=== PATIENT | male | born 1980 | race Asian ===

== ENCOUNTER 2016-12-15 17:19 | Emergency (ER) | payer SELFPAY ==
--- NOTE | 2016-12-15 18:52 | ER Document Report ---
ED Medical Screen (RME) - General Stated Complaint: HAND INJURY Notes: 36 yo male c/o right hand pain. punched a wall. + pain and swelling over 4th and 5th metacarpals no deformity - Related Data Allergies/Adverse Reactions: No Known Allergies Allergy (Verified 12/15/16 18:50) Physical Exam - Vital signs Vitals: Temp Pulse Resp BP Pulse Ox 99.2 F 75 16 128/90 H 100 12/15/16 17:41 12/15/16 17:41 12/15/16 17:41 12/15/16 17:41 12/15/16 17:41 Course - Vital Signs Vital signs: Temp Pulse Resp BP Pulse Ox 99.2 F 75 16 128/90 H 100 12/15/16 17:41 12/15/16 17:41 12/15/16 17:41 12/15/16 17:41 12/15/16 17:41
--- NOTE | 2016-12-15 20:02 | ER Document Report ---
ED Hand/Wrist Injury - General Chief Complaint: Hand Injury Stated Complaint: HAND INJURY Notes: Patient is a 36-year-old male presents emergency department after he punched a wall today. He isn't states that he was jittery with this friend inserting his friend he punched a wall. Patient admits to pain over the fourth and fifth metacarpals with pain with movement of the hand. Patient states he is able to move his fingers but has pain along the 2 areas. Patient admits to some pain in his wrist as well but easily able to move his wrist. Sensation is intact in the hand. Patient denies any past medical problems. Does not have a primary care physician. TRAVEL OUTSIDE OF THE [place] IN LAST 30 DAYS: No - Related Data Allergies/Adverse Reactions: No Known Allergies Allergy (Verified 12/15/16 18:50) Past Medical History - Social History Smoking Status: Current Every Day Smoker Chew tobacco use (# tins/day): No Frequency of alcohol use: Social Drug Abuse: None Family History: Reviewed & Not Pertinent Patient has suicidal ideation: No Patient has homicidal ideation: No Renal/ Medical History: Denies: Hx Peritoneal Dialysis Review of Systems - Review of Systems Musculoskeletal: See HPI -: Yes All other systems reviewed and negative Physical Exam - Vital signs Vitals: Temp Pulse Resp BP Pulse Ox 99.2 F 75 16 128/90 H 100 12/15/16 17:41 12/15/16 17:41 12/15/16 17:41 12/15/16 17:41 12/15/16 17:41 - General General appearance: Appears well, Alert In distress: Mild - Cardiovascular Pulses: Normal: Radial Normal capillary refill: Yes - Extremities Wrist: Nontender. No: Deformity, Dislocation, Laceration, Limited ROM Hand: Tender, Swelling. No: Abrasion, Deformity, Dislocation, Ecchymosis, Instability, Laceration, Nail injury, No evidence of human bite, No evidence of FB, Tendon deficit - Neurological Sensory: Normal - Skin Skin Temperature: Warm Skin Moisture: Dry Skin Color: Normal Skin Turgor: Elastic Course - Re-evaluation Re-evalutation: 12/15/16 19:59 Patient is a 28-year-old male presents after punching injury to wall. X-ray of the hand Does not show any evidence of boxer's fracture does have small avulsion fracture at the base of the fourth metacarpal as well as the scaphoid. Physical exam is benign for any concern of neuro vascular damage. We'll place in splints with encouragement to follow up with primary care. - Vital Signs Vital signs: Temp Pulse Resp BP Pulse Ox 99.2 F 75 16 128/90 H 100 12/15/16 17:41 12/15/16 17:41 12/15/16 17:41 12/15/16 17:41 12/15/16 17:41 - Diagnostic Test Radiology reviewed: Image reviewed, Reports reviewed Discharge - Discharge Clinical Impression: Hand injury Condition: Good Disposition: HOME, SELF-CARE Instructions: [facility] Wrap ([facility]), [facility] Elevation ([facility]) Additional Instructions: You have evidence of what is called an avulsion fracture. This does not require surgery. Please follow discharge instructions. Follow-up with primary care. Prescriptions: Ibuprofen [Motrin 800 mg Tablet] 800 mg PO Q8H PRN #30 tab PRN Reason: Tramadol HCl 50 mg PO TID #10 tablet
[2016-12-15] MEDS ORDERED: ACETAMINOPHEN 325 MG TABLET PO ONE (20:06)
[2016-12-15 20:29] VITALS: BP 139/71
== END 2016-12-15 20:50 | disposition home or self-care (01) ==
LOC: ER 17:19
DX: S62.314A Displaced fracture of base of fourth metacarpal bone, right hand, initial encounter for closed fracture (principal); S62.001A Unspecified fracture of navicular [scaphoid] bone of right wrist, initial encounter for closed fracture; W22.01XA Walked into wall, initial encounter; F17.200 Nicotine dependence, unspecified, uncomplicated
CPT/HCPCS: 99283